=== PATIENT | female | born 1955 | race Caucasian/White ===

== ENCOUNTER 2016-09-25 14:03 | Emergency (ER) | payer MEDICARE, OTHER ==
--- NOTE | 2016-09-25 14:46 | ER Document Report ---
ED Medical Screen (RME) - General Chief Complaint: Swelling of Lower Extremity Stated Complaint: LEG PAIN Time Seen by Provider: 09/25/16 14:30 Mode of Arrival: Ambulatory Information source: Patient Notes: Patient is a 60 year old female who presents to the ED with complaints of bilateral lower extremity swelling with onset (09/21/2016) after driving back form [place]. Patient also has small wounds to her lower chins from being tangled in a dog lead. Patient also complains of SOB. TRAVEL OUTSIDE OF THE [place] IN LAST 30 DAYS: No - HPI Associated Symptoms: Other - see above - Related Data Allergies/Adverse Reactions: lamotrigine [From Lamictal] Allergy (Verified 09/25/16 14:07) morphine Allergy (Verified 09/25/16 14:07) Past Medical History - General Information source: Patient - Social History Frequency of alcohol use: None Drug Abuse: None Endocrine Medical History: Reports: Hx Diabetes Mellitus Type 2 - diet controlled Renal/ Medical History: Denies: Hx Peritoneal Dialysis Past Surgical History: Reports: Hx Appendectomy, Hx Section - x2, Hx Hysterectomy, Hx Tonsillectomy Review of Systems - Review of Systems Constitutional: No symptoms reported EENT: No symptoms reported Cardiovascular: No symptoms reported Respiratory: See HPI, Short of breath Gastrointestinal: No symptoms reported Genitourinary: No symptoms reported Female Genitourinary: No symptoms reported Musculoskeletal: See HPI, Other - swelling in bilateral lower extremities Skin: See HPI, Other - abrasions on lower shins Hematologic/Lymphatic: No symptoms reported Neurological/Psychological: No symptoms reported Physical Exam - Vital signs Vitals: Temp Pulse Resp BP Pulse Ox 98.1 F 73 18 130/80 H 96 09/25/16 14:07 09/25/16 14:07 09/25/16 14:07 09/25/16 14:07 09/25/16 14:07 - General In distress: None - Respiratory Respiratory status: No respiratory distress Breath sounds: Normal - Cardiovascular Rhythm: Regular Heart sounds: Normal auscultation Murmur: No - Extremities General lower extremity: Other - 1 plus edema in bilateral lower extremities, healing abrasions without secondary infection across bilateral lower extremieies Course - Vital Signs Vital signs: Temp Pulse Resp BP Pulse Ox 98.1 F 73 18 130/80 H 96 09/25/16 14:07 09/25/16 14:07 09/25/16 14:07 09/25/16 14:07 09/25/16 14:07 Scribe Documentation - Scribe Written by Adolfo:: adolfo Hastings, 09/25/2016, 1445 acting as scribe for :: Calli
[2016-09-25 15:07] LABS: ABSOLUTE EOSINOPHILS # (AUTO) 0.1 10^3/uL (0.0-0.6); ABSOLUTE LYMPHOCYTES (AUTO) 2.1 10^3/uL (0.5-4.7); ABSOLUTE MONOCYTES (AUTO) 0.5 10^3/uL (0.1-1.4); ABSOLUTE NEUT (AUTO) 2.7 10^3/uL (1.7-8.2); BASOPHILS % (AUTO) 0.5 % (0-2); EOSINOPHILS % (AUTO) 1.2 % (0-6); HEMATOCRIT 46.5 % (36.0-47.0); HEMOGLOBIN 15.6 g/dL (12.0-15.5); HGB HCT DIFFERENCE 0.3; LYMPHOCYTES % (AUTO) 38.1 % (13-45); MEAN CORPUSCULAR HEMOGLOBIN 28.9 pg (27.0-33.4); MEAN CORPUSCULAR HGB CONC 33.5 g/dL (32.0-36.0); MEAN CORPUSCULAR VOLUME 87 fl (80-97); MONOCYTES % (AUTO) 9.6 % (3-13); RED BLOOD COUNT 5.38 10^6/uL (3.72-5.28); RED CELL DISTRIBUTION WIDTH 14.3 % (11.5-14.0); SEGMENTED NEUTROPHILS % (AUTO) 50.6 % (42-78); WHITE BLOOD COUNT 5.4 10^3/uL (4.0-10.5)
[2016-09-25 15:11] LABS: APPEARANCE,URINE CLEAR; BILIRUBIN,URINE NEGATIVE (NEGATIVE); CALCIUM OXALATE CRYSTALS,URINE RARE /HPF; GLUCOSE, URINE NEGATIVE (NEGATIVE); KETONES,URINE NEGATIVE (NEGATIVE); LEUKOCYTE ESTERASE,URINE NEGATIVE (NEGATIVE); NITRITE,URINE NEGATIVE (NEGATIVE); PROTEIN,URINE NEGATIVE (NEGATIVE); URINE SPECIFIC GRAVITY 1.021; UROBILINOGEN,URINE NEGATIVE mg/dL (<2.0)
[2016-09-25 15:35] LABS: ALANINE AMINOTRANSFERASE 30 U/L (9-52); ALBUMIN 4.2 g/dL (3.5-5.0); ALKALINE PHOSPHATASE 58 U/L (38-126); ANION GAP 11 (5-19); ASPARTATE AMINO TRANSFERASE 34 U/L (14-36); BILIRUBIN,DIRECT 0.3 mg/dL (0.0-0.4); BILIRUBIN,TOTAL 0.7 mg/dL (0.2-1.3); BLOOD UREA NITROGEN 15 mg/dL (7-20); CALCIUM 9.1 mg/dL (8.4-10.2); CARBON DIOXIDE 21 mmol/L (22-30); CHLORIDE 112 mmol/L (98-107); GLUCOSE 93 mg/dL (75-110); POTASSIUM 3.9 mmol/L (3.6-5.0); SODIUM 143.6 mmol/L (137-145); TOTAL PROTEIN 6.9 g/dL (6.3-8.2)
[2016-09-25] MEDS ORDERED: HYDROCHLOROTHIAZIDE 12.5 MG CAPSULE PO ONE (17:13)
--- NOTE | 2016-09-25 17:13 | ER Document Report ---
ED Extremity Problem, Lower - General Chief Complaint: Swelling of Lower Extremity Stated Complaint: LEG PAIN Time Seen by Provider: 09/25/16 14:30 Mode of Arrival: Ambulatory Information source: Patient Notes: Patient is a 60-year-old female with a history of hypertension who presents to the ER today for bilateral swollen lower extremities after a long drive from [place] and did 3 days ago. Patient states that she has never had swollen legs before, denies any history of CHF or kidney disease. She states that they do not hurt, and also complains that her blood pressure has been increased recently. She denies any chest pain, shortness of breath TRAVEL OUTSIDE OF THE [place] IN LAST 30 DAYS: No - Related Data Allergies/Adverse Reactions: lamotrigine [From Lamictal] Allergy (Verified 09/25/16 14:07) morphine Allergy (Verified 09/25/16 14:07) Past Medical History - General Information source: Patient - Social History Smoking Status: Never Smoker Frequency of alcohol use: None Drug Abuse: None Family History: Reviewed & Not Pertinent Patient has suicidal ideation: No Patient has homicidal ideation: No Endocrine Medical History: Reports: Hx Diabetes Mellitus Type 2 - diet controlled Renal/ Medical History: Denies: Hx Peritoneal Dialysis Past Surgical History: Reports: Hx Appendectomy, Hx Section - x2, Hx Hysterectomy, Hx Tonsillectomy Review of Systems - Review of Systems Constitutional: No symptoms reported EENT: No symptoms reported Cardiovascular: See HPI Respiratory: No symptoms reported Gastrointestinal: No symptoms reported Genitourinary: No symptoms reported Female Genitourinary: No symptoms reported Musculoskeletal: No symptoms reported Skin: See HPI Hematologic/Lymphatic: No symptoms reported Neurological/Psychological: No symptoms reported Physical Exam - Vital signs Vitals: Temp Pulse Resp BP Pulse Ox 98.1 F 73 18 130/80 H 96 09/25/16 14:07 09/25/16 14:07 09/25/16 14:07 09/25/16 14:07 09/25/16 14:07 - Notes Notes: PHYSICAL EXAMINATION: GENERAL: Well-appearing and in no acute distress. HEAD: Atraumatic, normocephalic. EYES: Pupils equal round and reactive to light, extraocular movements intact, sclera anicteric, conjunctiva are normal. ENT: ear canals without erythema or foreign body, TMs pearly marino with good bony landmarks, nares patent, oropharynx clear without exudates. Moist mucous membranes. NECK: Normal range of motion, supple without lymphadenopathy LUNGS: CTAB and equal. No wheezes rales or rhonchi. HEART: Regular rate and rhythm without murmurs ABDOMEN: Soft, no tenderness. No guarding, no rebound BACK: no vertebral tenderness, normal ROM GI/: no CVA tenderness EXTREMITIES: Normal range of motion, no pitting edema. No cyanosis. NEUROLOGICAL: Cranial nerves grossly intact. Normal sensory/motor exams. PSYCH: Normal mood, normal affect. SKIN: Warm, Dry, normal turgor, no rashes or lesions noted Course - Vital Signs Vital signs: Temp Pulse Resp BP Pulse Ox 97 F L 78 16 126/88 H 97 09/25/16 17:20 09/25/16 17:20 09/25/16 17:20 09/25/16 17:20 09/25/16 17:20 - Laboratory Result Diagrams: 09/25/16 14:50 09/25/16 14:50 Laboratory results interpreted by me: 09/25/16 09/25/16 09/25/16 14:50 14:50 14:50 RBC 5.38 H Hgb 15.6 H RDW 14.3 H Plt Count 103 L Chloride 112 H Carbon Dioxide 21 L Est GFR (Non-Af Amer) 56 L Urine Blood MODERATE H Discharge - Discharge Clinical Impression: Lower extremity edema HTN (hypertension) Qualifiers: Hypertension type: unspecified Qualified Code(s): I10 - Essential (primary) hypertension Condition: Stable Disposition: HOME, SELF-CARE Additional Instructions: Return immediately for any new or worsening symptoms. Follow up with primary care provider, call tomorrow to make followup appointment. Prescriptions: Hydrochlorothiazide 12.5 mg PO DAILY #30 capsule Referrals: HALIE HEATH MD [ACTIVE STAFF] - Follow up as needed SOPHIA MORENO MD [ACTIVE STAFF] - Follow up as needed
[2016-09-25 17:34] VITALS: BP 126/88
== END 2016-09-25 17:20 | disposition home or self-care (01) ==
LOC: ER 14:03
DX: R60.9 Edema, unspecified (principal); I10 Essential (primary) hypertension; E11.9 Type 2 diabetes mellitus without complications; Z88.6 Allergy status to analgesic agent; Z90.710 Acquired absence of both cervix and uterus
CPT/HCPCS: 36415; 80053; 81001; 83880; 85025; 99283

== ENCOUNTER → 2016-12-14 | Outpatient (CLI) | payer MEDICARE ==
[2016-12-14 10:38] LABS: PROTHROMBIN TIME 13.4 SEC (11.4-15.4)
[2016-12-14 10:53] LABS: HEMATOCRIT 44.9 % (36.0-47.0); HEMOGLOBIN 15.4 g/dL (12.0-15.5); HGB HCT DIFFERENCE 1.3; MEAN CORPUSCULAR HEMOGLOBIN 29.3 pg (27.0-33.4); MEAN CORPUSCULAR HGB CONC 34.3 g/dL (32.0-36.0); MEAN CORPUSCULAR VOLUME 85 fl (80-97); RED BLOOD COUNT 5.26 10^6/uL (3.72-5.28); RED CELL DISTRIBUTION WIDTH 13.7 % (11.5-14.0); WHITE BLOOD COUNT 4.1 10^3/uL (4.0-10.5)
[2016-12-14 11:01] LABS: ALANINE AMINOTRANSFERASE 24 U/L (9-52); ALBUMIN 4.3 g/dL (3.5-5.0); ALKALINE PHOSPHATASE 47 U/L (38-126); ANION GAP 8 (5-19); ASPARTATE AMINO TRANSFERASE 21 U/L (14-36); BILIRUBIN,DIRECT 0.4 mg/dL (0.0-0.4); BILIRUBIN,TOTAL 0.7 mg/dL (0.2-1.3); BLOOD UREA NITROGEN 14 mg/dL (7-20); CALCIUM 9.7 mg/dL (8.4-10.2); CARBON DIOXIDE 27 mmol/L (22-30); CHLORIDE 108 mmol/L (98-107); CREATININE RESULT 1.01 mg/dL (0.52-1.25); GLUCOSE 84 mg/dL (75-110); POTASSIUM 3.7 mmol/L (3.6-5.0); SODIUM 142.9 mmol/L (137-145); TOTAL PROTEIN 6.9 g/dL (6.3-8.2)
[2016-12-14 11:30] LABS: THYROID STIMULATING HORMONE 0.61 uIU/mL (0.47-4.68)
== END ==
LOC: OD 09:24
PROVIDERS: ATTEND Physician Assistant Surgical
DX: K74.69 Other cirrhosis of liver (principal); K59.01 Slow transit constipation; K76.6 Portal hypertension
CPT/HCPCS: 36415; 80053; 80074; 84439; 84443; 85027; 85610

== ENCOUNTER → 2016-12-20 | Outpatient (CLI) | payer MEDICARE | LOC: OD 09:32 | PROVIDERS: ATTEND Internal Medicine Gastroenterology | DX: K74.69 Other cirrhosis of liver (principal); K76.6 Portal hypertension | CPT/HCPCS: 36415; 82728; 86038; 86235; 86256 ==

== ENCOUNTER → 2017-10-25 | Outpatient (CLI) | payer MEDICARE ==
[2017-10-25 16:02] LABS: CALCIUM 9.3 mg/dL (8.4-10.2); PHOSPHORUS 3.7 mg/dL (2.5-4.5)
== END ==
LOC: OD 15:08
PROVIDERS: ATTEND Otolaryngology
DX: E04.1 Nontoxic single thyroid nodule (principal)
CPT/HCPCS: 36415; 82040; 82310; 83735; 83970; 84100

== ENCOUNTER 2017-11-05 05:35 | Observation (INO) | payer MEDICARE ==
[~2017-11-05 05:35] MED LIST: CEFAZOLIN 2 GM/D5W RTU 2 GM/50 ML RTUPB IV PRN
[2017-11-05 06:29] LABS: POTASSIUM 3.9 mmol/L (3.6-5.0)
[2017-11-05] MEDS ORDERED: FENTANYL CITRATE INJ/PF 250 MCG/5 ML AMPULE ONE (06:41)
[2017-11-05] MEDS ORDERED: DEXMEDETOMIDINE INJ 80 MCG/20 ML VIAL IV ONE (06:41)
[2017-11-05] MEDS ORDERED: MIDAZOLAM 2 MG/2 ML INJ ONE (06:41)
[2017-11-05] MEDS ORDERED: PROPOFOL INJ 200 MG/20 ML VIAL IV ONE (06:41)
[2017-11-05] MEDS ORDERED: FENTANYL CITRATE INJ/PF 100 MCG/2 ML AMPUL ONE (06:41)
[2017-11-05] MEDS ORDERED: ACETAMINOPHEN 1,000 MG/100 ML RTUPB IV ONE (06:41)
[2017-11-05] MEDS ORDERED: EPHEDRINE SULFATE INJ 50 MG/1 ML AMPULE ONE (06:56)
[2017-11-05] MEDS ORDERED: LIDOCAINE 2%/EPINEPHRINE INJ 1.7 ML CARTRIDGE ONE (07:30)
--- NOTE | 2017-11-05 07:52 | EKG REPORT ---
SEVERITY:- OTHERWISE NORMAL ECG - SINUS RHYTHM BORDERLINE LEFT AXIS DEVIATION : Confirmed by: Chapincito Valladares MD 05-Nov-2017 07:51:32
[2017-11-05 07:59] LABS: ABSOLUTE EOSINOPHILS # (AUTO) 0.1 10^3/uL (0.0-0.6); ABSOLUTE LYMPHOCYTES (AUTO) 1.9 10^3/uL (0.5-4.7); ABSOLUTE MONOCYTES (AUTO) 0.4 10^3/uL (0.1-1.4); ABSOLUTE NEUT (AUTO) 2.4 10^3/uL (1.7-8.2); BASOPHILS % (AUTO) 0.7 % (0-2); EOSINOPHILS % (AUTO) 2.5 % (0-6); HEMOGLOBIN 14.4 g/dL (12.0-15.5); LYMPHOCYTES % (AUTO) 38.8 % (13-45); MEAN CORPUSCULAR HEMOGLOBIN 29.4 pg (27.0-33.4); MEAN CORPUSCULAR HGB CONC 34.3 g/dL (32.0-36.0); MEAN CORPUSCULAR VOLUME 86 fl (80-97); MONOCYTES % (AUTO) 8.4 % (3-13); RED BLOOD COUNT 4.91 10^6/uL (3.72-5.28); SEGMENTED NEUTROPHILS % (AUTO) 49.6 % (42-78); TOTAL CELLS COUNTED % (AUTO) 100 %; WHITE BLOOD COUNT 4.9 10^3/uL (4.0-10.5)
[2017-11-05 08:26] LABS: PLATELET COUNT 89 10^3/uL (150-450)
[2017-11-05] MEDS ORDERED: ONDANSETRON HCL INJ/PF 4 MG/2 ML SDV ONE (09:50)
[2017-11-05] MEDS ORDERED: ROCURONIUM BROMIDE INJ 50 MG/5 ML VIAL IV ONE (09:50)
[2017-11-05] MEDS ORDERED: DEXAMETHASONE SOD PHOSPHATE INJ 4 MG/1 ML VIAL ONE (09:50)
[2017-11-05] MEDS ORDERED: PHENYLEPHRINE HCL INJ/PF 10 MG/1 ML SDV ONE (09:50)
[2017-11-05] MEDS ORDERED: SUCCINYLCHOLINE CHLORIDE INJ 200 MG/10 ML VIAL ONE (09:50)
[2017-11-05] MEDS ORDERED: PROMETHAZINE HCL INJ 25 MG/1 ML VIAL IV PRN ×3 (10:22→12:54)
[2017-11-05] MEDS ORDERED: MEPERIDINE HCL/PF INJ 25 MG/1 ML DISP.SYRIN IV PRN (10:22)
[2017-11-05] MEDS ORDERED: DIPHENHYDRAMINE HCL 50 MG/ML VIAL IV PRN (10:22)
[2017-11-05] MEDS ORDERED: FENTANYL CITRATE INJ/PF 100 MCG/2 ML AMPUL IV PRN ×3 (10:22)
[2017-11-05] MEDS: FENTANYL CITRATE INJ/PF 100 MCG/2 ML AMPUL ONE ×2 (12:30→12:40)
[2017-11-05] MEDS ORDERED: HYDROCODONE/ACETAMINOPHEN 5-325 MG TABLET PO PRN (12:35)
[2017-11-05] MEDS ORDERED: ONDANSETRON HCL INJ/PF 4 MG/2 ML SDV IV PRN ×2 (12:35→12:54)
[2017-11-05] MEDS ORDERED: ONDANSETRON 4 MG TAB.RAPDIS PO PRN (12:36)
[2017-11-05] MEDS ORDERED: RINGERS SOLUTION,LACTATED 1,000 ML IV PRN (12:54)
[2017-11-05] MEDS ORDERED: PROMETHAZINE HCL INJ 25 MG/1 ML VIAL ONE (13:03)
[2017-11-05] MEDS: HYDROCODONE/ACETAMINOPHEN 5-325 MG TABLET PO PRN ×2 (16:20→20:31)
[2017-11-05 16:33] LABS: ALBUMIN 3.8 g/dL (3.5-5.0); CALCIUM 9.2 mg/dL (8.4-10.2); PHOSPHORUS 5.7 mg/dL (2.5-4.5)
--- NOTE | 2017-11-05 22:36 | OPERATIVE REPORT E ---
Operative Report NAME: MILLICENT THOMPSON : 1955 AGE: 61Y DATE OF SURGERY: 11/05/2017 ROOM: 211 PREOPERATIVE DIAGNOSIS: MULTINODULAR GOITER. POSTOPERATIVE DIAGNOSIS: MULTINODULAR GOITER. OPERATIONS: 1. Total thyroidectomy. 2. Intraoperative noninvasive nerve monitoring (NIM). SURGEON: JERAD KING D.O. ANESTHESIA: General endotracheal tube. ANESTHESIA STAFF: JENNIFER Justice. ESTIMATED BLOOD LOSS: 30 mL. FLUIDS: 1650 mL. URINE OUTPUT: 370 mL. COMPLICATIONS: None. DRAINS: None. SPONGE COUNT: Verified. NEEDLE COUNT: Verified. MATERIALS FORWARDED SPECIMEN: 1. Total thyroid gland specimen with double long marking suture at the right superior pole and short single suture at the left superior pole. 2. Two intraoperative frozen specimens were sent for rule out parathyroid gland tissue and both frozen section evaluations came back consistent with normal thyroid tissue. FINDINGS: 1. Enlarged multinodular thyroid gland, left greater than right. The overall appearance of the thyroid was noted to be multilobular, with very irregular lobular margins/borders. 2. The left recurrent laryngeal nerve was clearly identified and stimulated appropriately at 1 mA. 3. The right recurrent laryngeal nerve was not identified during the case. 4. Left and right parathyroid gland prospects were identified and preserved during the case. INDICATIONS: This is a 61-year-old white female who was seen and evaluated in the [facility] office. The patient had been referred to ENT for a history of an enlarging multinodular goiter, which has been followed over the years. The patient had previously been seen in [place], [place], with thyroid ultrasound performed and fine needle aspiration biopsies performed of the thyroid nodule, with pathology noted as benign. The patient was also referred to Dr. Estes, hot plate press operator in [place], [place], for consult and evaluation with an enlarging multinodular goiter, especially on the left side noted on thyroid ultrasound. The patient had been counseled to at least undergo a left thyroid lobectomy, due to the size of the dominant left nodule. The patient also related a history of compressive type symptoms over the years. There was extensive discussion with the patient. Due to the multinodular state of the thyroid gland, the patient desired to undergo a total thyroidectomy versus a left thyroid lobectomy, with thought of potentially needing to return to the operating room for a completion lobectomy and/or with continued right-sided ultrasounds and needle biopsies as indicated, and then potentially, completion surgery. The total thyroidectomy surgery was discussed with the patient in detail, as were the risks and complications. The patient voiced an understanding of all that had been discussed, was in agreement, and consent was obtained for a total thyroidectomy. PROCEDURE: The patient was taken to the main operating room and placed on the operating room table in the supine position. Appropriate monitors were placed. Using mask and IV access, general anesthesia was induced. The patient was then positioned and prepped for thyroid surgery. There was a previously marked incision site, which was next infiltrated with local anesthetic with epinephrine. The [facility] recurrent laryngeal nerve monitoring system was set up and tested appropriately before the beginning of the case. The patient was next prepped and draped in a sterile fashion for thyroid surgery. The skin was sharply incised down through the subcutaneous and platysmal tissues. Flaps were elevated in the subplatysmal plane. Strap muscles were divided in the midline without difficulty. Findings were as noted above. The left thyroid lobe was mobilized. The superior parathyroid gland prospect was identified and preserved, as was the left recurrent laryngeal nerve. The gland was mobilized from Myers's ligament and was freed from the anterior tracheal wall. Attention was turned to the right side, which was mobilized from the strap muscles and surrounding tissues. The right multinodular goiter aspect of the gland was less involved compared to the left. The right side was mobilized, as the left side had been. A right superior parathyroid gland prospect was identified and preserved. The right recurrent laryngeal nerve was not clearly seen during the case. There was no concerning lymphadenopathy identified. The gland was removed after being freed completely from Myers's ligament and marked for permanent pathology evaluation. The wound bed was thoroughly irrigated and bipolar electrocautery was used to provide adequate hemostasis. The Harmonic handpiece had also been utilized to divide superior and inferior pole vasculature. At this point, there was adequate hemostasis noted. There was a piece of Surgicel approximately 2 x 2 cm placed, 1 on the left and 1 on the right, over the recurrent laryngeal nerve areas. At this point, the strap muscles were reapproximated in the midline with 5-0 Vicryl suture. The deep subcutaneous and platysmal layers were reapproximated with 5-0 Vicryl suture. Next, the deep dermal and subcutaneous layers were reapproximated with 5-0 Monocryl. The skin margins were reapproximated with a 5-0 Monocryl continuous deep dermal suture. Next, the skin was cleaned and dried, followed by placement of Mastisol, Steri-Strips and a fluff pressure dressing. The patient was returned to the Anesthesia staff and was allowed to emerge from general anesthesia. The patient was extubated in the main operating room and was then transported to the post anesthesia recovery unit in stable condition. There were no complications. DICTATING PHYSICIAN: JERAD KING D.O. [id number] PHY#: [id number] ID: [id number] JOB#: [id number] ACCT: [id number] cc:JERAD KING D.O. >
[2017-11-06] MEDS: HYDROCODONE/ACETAMINOPHEN 5-325 MG TABLET PO PRN ×2 (03:56→11:58)
[2017-11-06 08:22] LABS: ALBUMIN 3.3 g/dL (3.5-5.0); CALCIUM 8.6 mg/dL (8.4-10.2)
[2017-11-06 08:39] LABS: PHOSPHORUS 3.3 mg/dL (2.5-4.5)
[2017-11-06 13:11] VITALS: BP 136/84
== END 2017-11-06 13:09 | disposition home or self-care (01) ==
LOC: OROUT 05:35 → INOR 05:36 → EDSTATUS 07:30 → 2N 13:32 → OROUT 11-06 14:00
PROVIDERS: ADMIT Otolaryngology; ATTEND Otolaryngology
PROC: 0GBJ0ZZ Excision of Thyroid Gland Isthmus, Open Approach (ICD-10-PCS; 2017-11-05)
PROC: 0GTK0ZZ Resection of Thyroid Gland, Open Approach (ICD-10-PCS; principal; 2017-11-05 07:30)
DX: C73 Malignant neoplasm of thyroid gland (principal); E04.2 Nontoxic multinodular goiter; R49.0 Dysphonia; K21.9 Gastro-esophageal reflux disease without esophagitis; G47.33 Obstructive sleep apnea (adult) (pediatric); Z79.899 Other long term (current) drug therapy
CPT/HCPCS: 36415 ×2; 82962; 82040 ×2; 82310 ×2; 82947; 83735 ×2; 84100 ×2; 84132; 85025; 83970; 88305 ×2; 88307 ×2; 88331 ×2; 93005; 93010; 60240; G0378 ×2; G0379; J2250; J3490 ×4; J1100; J3010 ×2; J2370; J2550; J0330; J2405; J7120; J2704; J0131; A9270 ×2; 320